=== PATIENT | male | born 1970 | race Caucasian/White ===

== ENCOUNTER 2016-09-21 06:01 | Inpatient (IN) | payer BC ==
[2016-09-20 15:25] VITALS: BMI 21.2
[~2016-09-21] VITALS: Ht 167.6 cm; Wt 78.0 kg
[2016-09-21] VITALS (21 sets, daily range): BP systolic 98–122; BP diastolic 53–74; PULSE 58–95; RESP 10–24; Ht 167.6 cm; Wt 78.0 kg
[2016-09-21] MEDS ORDERED: LACTATED RINGER'S 1,000 ML IV* ONE (07:00)
[2016-09-21] MEDS ORDERED: CEFAZOLIN 2 GM/50 ML (PMX) 50 ML IVPB ONE (07:00)
--- NOTE | 2016-09-21 07:26 | HPN ---
Date/Time of Note Date/Time of Note DATE: 09/21/16 TIME: 07:25 Interval H&P Admission Note Pt. seen H&P reviewed: No system changes REMY ISLAS MD Sep 21, 2016 07:25
[2016-09-21] MEDS ORDERED: POLYMYXIN/BACITRACIN 1L IRRIG ONE (07:41)
[2016-09-21] MEDS ORDERED: BUPIVACAINE 0.25%/EPI (SDV) 30 ML INJ ONE (07:43)
[2016-09-21] MEDS ORDERED: GELATIN SIZE 100 SPONGE ONE (07:43)
[2016-09-21] MEDS ORDERED: THROMBIN 5000 UNIT VIAL ONE (07:44)
[2016-09-21] MEDS ORDERED: GLYCOPYRROLATE 1 MG INJ ONE ×2 (07:58→10:26)
[2016-09-21] MEDS ORDERED: SUCCINYLCHOLINE CHLORIDE 100 MG/5 ML SYG IV ONE (07:58)
[2016-09-21] MEDS ORDERED: LIDOCAINE 2% (SDV) 5 ML INJ ONE (07:58)
[2016-09-21] MEDS ORDERED: PROPOFOL 20 ML ONE (07:58)
[2016-09-21] MEDS ORDERED: ROCURONIUM 50 MG INJ ONE ×2 (07:58→09:03)
[2016-09-21] MEDS ORDERED: NEOSTIGMINE 3 MG/3 ML SYRINGE ONE ×2 (07:58→10:27)
[2016-09-21] MEDS ORDERED: MEPERIDINE 100 MG INJ ONE (07:58)
[2016-09-21] MEDS ORDERED: CEFAZOLIN 1 GM INJ ONE (08:11)
[2016-09-21] MEDS ORDERED: ONDANSETRON 4 MG INJ ONE (10:27)
[2016-09-21] MEDS ORDERED: ATROPINE 1 MG/10 ML SYRINGE ONE (10:29)
[2016-09-21] MEDS ORDERED: EPHEDrine SULFATE 50 MG/5 ML SYG ONE (10:29)
[2016-09-21] MEDS ORDERED: OXYCODONE/ACETAMINOPHEN (5/325) TAB PO PRN ×2 (11:30)
[2016-09-21] MEDS ORDERED: MEPERIDINE 25 MG INJ IV PRN (11:30)
[2016-09-21] MEDS ORDERED: LABETALOL HCL 20MG INJ IV PRN (11:30)
[2016-09-21] MEDS ORDERED: METOCLOPRAMIDE 10 MG INJ IV PRN (11:30)
[2016-09-21] MEDS ORDERED: DIPHENHYDRAMINE 50 MG INJ IV PRN (11:30)
[2016-09-21] MEDS ORDERED: hydrALAzine 20 MG INJ IV PRN (11:30)
[2016-09-21] MEDS ORDERED: ONDANSETRON 4 MG INJ IV PRN ×2 (11:30→12:00)
[2016-09-21] MEDS ORDERED: MIDAZOLAM 1 MG/ML 2 ML INJ IV PRN (11:30)
[2016-09-21] MEDS ORDERED: HYDROmorphONE (0.2 MG/ML) 10ML SYG IV PRN ×3 (11:30)
[2016-09-21] MEDS ORDERED: EPHEDrine SULFATE 50 MG/5 ML SYG IV PRN (11:30)
[2016-09-21] MEDS ORDERED: FENTAnyl 50 MCG/ML VIAL IV PRN ×3 (11:30)
[2016-09-21] MEDS ORDERED: morphine (1 MG/ML) 10ML SYRINGE IV PRN ×3 (11:30)
--- NOTE | 2016-09-21 11:51 | OPR ---
Date/Time of Note Date/Time of Note DATE: 09/21/16 TIME: 11:36 Operative Report Free Text/Dictation DATE OF OPERATION: 09/21/2016 PREOPERATIVE DIAGNOSES: 1. Left sided L4-5 Herniated Nucleus Pulposis 2. L4-5 spinal stenosis with neurogenic claudication POSTOPERATIVE DIAGNOSES: 1. Left sided L4-5 Herniated Nucleus Pulposis 2. L4-5 spinal stenosis with neurogenic claudication OPERATION PERFORMED: 1. Left L4-L5 microdiscectomy 2. L4-5 bilateral laminectomy, medial facetectomy, and foraminotomy SURGEON: Remy Islas MD ANESTHESIA: General endotracheal ESTIMATED BLOOD LOSS: 100 mL SURGICAL INDICATION: The patient is a 46 year-old male who presents with a 2 year history of worsening bilateral lower extremity pain with neurogenic claudication. He was found to have a disc herniation and severe spinal stenosis which correlated well with his symptoms. The patient had failed conservative treatment. Risks, benefits, and alternatives to a L4-5 microdiscectomy and L4- 5 bilateral decompression were explained to the patient and they wished to proceed. Risks explained included but were not exclusive of bleeding, infection , cauda equina syndrome, nerve injury, dural tear, iatrogenic instability requiring fusion, recurrent disc herniation, fracture, vascular injury, bowel injury, stroke, heart attack and pulmonary embolism. DESCRIPTION OF TECHNIQUE: The patient was identified in the preoperative area and taken to the operating room. Rapid induction of general endotracheal anesthesia was performed. The patient was given 2 g of cefazolin for prophylaxis. The patient was then placed in the prone position on the Rojas frame on a Bart flat top table with all prominences well padded. The back was prepped and draped in the usual sterile manner. Using a spinal needle and intraoperative fluoroscopy, the appropriate level was clearly identified (L4-L5) . The skin was injected using 0.25% Marcaine with epinephrine. Longitudinal midline incision was then created using a 10 blade. Further dissection through soft tissue was performed using electrocautery down to the spinous processes bilaterally. Dissection was taken down the bilateral lamina and over the facet joint capsule. A self-retaining retractor was applied. Again, intraoperative fluoroscopy confirmed the level. A rongeur was used to remove a portion of the L4 spinous process and the interspinous ligaments. We identified the interlaminar window. The microscope was brought into use for microdissection. The high-speed bur was used to thin the L4 lamina. Kerrison rongeurs were then used to resect the lamina, and a portion of the medial facets and the bone overlying the foramen. Ligamentum flavum was also resected using the Kerrison rongeurs. Care was taken to protect the thecal sac throughout the decompressive procedure. We then focused our attention on the L4-5 left sided microdiskectomy. The dura and traversing left L5 nerve root were both directly visualized. These were retracted gently in a medial direction. Immediately, the extruded disc fragment was noted. The pseudo anulus was incised using an 11 blade. Several loose fragments of disk were removed. These were removed back to a stable portion of the disk. The disk space was further pressurized using a using normal saline through a syringe to ensure that no loose fragments remained behind. There was a portion of the disk that was noted to be calcified. Palpation with a ball-tip probe did not reveal any further stenosis in the central, subarticular, or foraminal areas. The bilateral L5 and L4 pedicles were palpated using a elsy to ensure a pedicle to pedicle decompression. The exiting L4 nerve root and traversing L5 nerve roots were both directly visualized and noted to be decompressed. The cephalad and caudad extent of the decompression were also confirmed using ball-tip probes and intraoperative fluoroscopy. Meticulous attention was then paid towards hemostasis using FloSeal and bipolar electrocautery. Care was taken to remove all FloSeal prior to wound closure. The fascia was then closed using 0 Vicryl in an interrupted fashion. Subcutaneous tissue was closed using 2-0 Vicryl in an interrupted fashion. The skin was closed using a running 4-0 Monocryl stitch. The wound was dressed using Dermabond and a 4x4 sterile gauze w/ a Tegaderm. The patient was returned to the supine position. He was extubated immediately postoperatively and taken to the recovery room in stable condition. COMPLICATIONS: None. Anesthesia: general Estimated Blood Loss: 100 - 150 ml's Complications: None Pt Condition Post Procedure: stable Disposition: PACU REMY ISLAS MD Sep 21, 2016 11:46
--- NOTE | 2016-09-21 11:52 | PDOCDIS ---
Discharge Instructions CONDITION Patient Condition: Good HOME CARE INSTRUCTIONS: Diet Instructions: Regular ACTIVITY: Activity Restrictions: Avoid heavy lifting Bathing Restrictions: Shower FOLLOW UP/APPOINTMENTS Follow-up Plan Follow-up with Dr. Islas in 2 weeks REMY ISLAS MD Sep 21, 2016 11:52
[2016-09-21] MEDS ORDERED: ACETAMINOPHEN 325 MG TAB PO PRN (12:00)
[2016-09-21] MEDS ORDERED: NACL 0.9% 3 ML SYG IV SCH (12:00)
[2016-09-21] MEDS ORDERED: ZOLPIDEM 5 MG TAB PO PRN (12:00)
[2016-09-21] MEDS ORDERED: HYDROmorphONE 2 MG/ML SYG IV PRN ×2 (12:00→15:42)
[2016-09-21] MEDS ORDERED: HYDROCODONE/APAP (5/325) TAB PO PRN (12:00)
[2016-09-21] MEDS ORDERED: NALOXONE (0.4 MG/ML) INJ IV PRN (12:00)
[2016-09-21] MEDS: CEFAZOLIN 1 GM/50 ML (PMX) 50 ML IVPB SCH ×2 (12:29→17:31)
[2016-09-21] MEDS: HYDROmorphONE 2 MG/ML SYG IV PRN (19:22)
[2016-09-21] MEDS ORDERED: DIAZEPAM 5 MG/ML SYG IM ONE (19:30)
[2016-09-21] MEDS: CYCLOBENZAPRINE 10 MG TAB PO SCH (22:14)
[2016-09-22] VITALS: BP 144/73; RESP 18
[2016-09-22] MEDS: CEFAZOLIN 1 GM/50 ML (PMX) 50 ML IVPB SCH ×2 (00:32→05:46)
[2016-09-22] MEDS: HYDROmorphONE 2 MG/ML SYG IV PRN ×2 (01:06→05:50)
[2016-09-22 05:00] VITALS: BP 108/63; PULSE 88; RESP 18
--- NOTE | 2016-09-22 07:56 | RADRPT ---
PROCEDURE: XR fluoro guidance CLINICAL INDICATION: Lumbar L4-5 decompression TECHNIQUE: Intraoperative fluoroscopy performed. 3 images submitted. Total fluoro time 8 sec. COMPARISON: None available FINDINGS: Lowermost mobile vertebral segment will be labeled L5. There are instruments posteriorly at the L4- 5 level. Anterior osteophytes are seen at L2-3, L4-5, L5-S1. See operative report for details. IMPRESSION: Fluoroscopic guidance for lumbar spine surgery described above. RPTAT: VV .Jose Carlos Allen MD, Date Time Electronically viewed and signed by .Jose Carlos Allen MD, on 09/21/2016 12:08 .O/
[2016-09-22 07:58] VITALS: BP 97/54; RESP 16
[2016-09-22] MEDS: CYCLOBENZAPRINE 10 MG TAB PO SCH ×2 (08:11→21:48)
[2016-09-22] MEDS: HYDROCODONE/APAP (5/325) TAB PO PRN ×3 (08:12→21:01)
[2016-09-22 15:10] VITALS: BP 105/62; PULSE 115; RESP 14
[2016-09-22 16:26] LABS: AADO2 Arterial 34.9 mmHg (7.0-24.0); Arterial Base Excess 2.3 mmol/L (-3.0-3); Arterial COHb 0.5 % (0.0-3.0); Arterial Fraction of Oxyhgb 91.8 % (93.0-99.0); Arterial HCO3 27.3 mmol/L (22.0-26.0); Arterial MetHb 0.5 % (0.0-1.5); Arterial Total Hemglobin 14.3 g/dl (12.0-18.0); MODE ROOM AIR
[2016-09-22 16:46] LABS: HEMATOCRIT 38.7 % (42.0-52.0); HEMOGLOBIN 13.1 g/dl (14.0-18.0)
[2016-09-22] MEDS ORDERED: SOD CHLORIDE 0.9% 250 ML IV ONE ×2 (17:00→21:00)
[2016-09-22 17:08] VITALS: BP 114/68; PULSE 108; RESP 14
--- NOTE | 2016-09-22 17:15 | RADRPT ---
PROCEDURE: XR Chest. CLINICAL INDICATION: Shortness of breath. Desaturation TECHNIQUE: A single portable view of the chest was obtained. COMPARISON: None FINDINGS: The cardiomediastinal silhouette is within normal limits. The right hemidiaphragm is elevated with r ight lower lobe atelectasis. The remaining lungs and pleural spaces are clear. The soft tissues and osseous structures are unremarkable. IMPRESSION: No acute cardiopulmonary disease. Elevated right hemidiaphragm with right lower lobe atelectasis. RPTAT: HPNM Physician Shlomo Date Time Electronically viewed and signed by Physician Shlomo on 09/22/2016 17:15 /
[2016-09-22] MEDS ORDERED: IOHEXOL 100 ML ONE (18:13)
[2016-09-22] MEDS ORDERED: SOD CHLORIDE 0.9% 100 ML ONE (18:13)
--- NOTE | 2016-09-22 19:05 | CONS ---
Date/Time of Note Date/Time of Note DATE: 09/22/16 TIME: 18:58 Assessment/Plan Assessment/Plan Chief Complaint/Hosp Course Assessment and plan: 46-year-old male past medical history of hypothyroidism, chronic low back pain, prior appendectomy, postop day #1 lumbar laminectomy secondary to disc herniation severe spinal stenosis, now with signs of fever and tachycardia, sepsis. 1. Low back pain: Status post lumbar laminectomy postop day #1 -Continue postop care per primary surgery team recommendations, including pain control, physical therapy 2. Sepsis: Patient having tachycardia and now fever in the last few hours. Unclear source. Also some chest pressure apparently. -Follow-up CTA to rule out pulmonary embolism. Will check stat labs including lactic acid, blood culture, UA, urine culture, CBC, BMP -We will start IV fluids as well 3. Hypothyroidism: We will check TSH and free T4 as well We will continue to follow along with you. Problems: Consultation Date/Type/Reason Admit Date/Time Sep 21, 2016 at 11:32 Hx of Present Illness 46-year-old male past medical history of hypothyroidism, chronic low back pain, prior appendectomy. He was brought in for elective surgery because of a 2 year history of worsening bilateral lower extremity pain with neurogenic claudication. He was found to have a disc herniation and severe spinal stenosis which correlated well with his symptoms. The patient had failed conservative treatment. He underwent left L4-L5 microdiscectomy as well as L4-5 bilateral laminectomy, medial facetectomy, and foraminotomy. Medical team was asked to consult because the patient has been having tachycardia and fever in the last few hours. He did work with physical therapy earlier today. Presently patient is down at CT scan getting a CT angios of the chest to rule out pulmonary embolism. Full review of systems cannot be obtained at this time nor physical exam. Past Medical History See HPI Past Surgical History Past Surgical Hx: appendectomy Family History Significant Family History: other (Unknown) Social History Smoking Status: Never smoker Exam/Review of Systems Vital Signs Vitals Vital Signs Date Time Temp Pulse Resp B/P Pulse Ox O2 Delivery O2 Flow Rate FiO2 09/22/16 17:08 100.0 108 14 114/68 89 Room Air 09/22/16 15:10 2.0 Intake and Output 09/21/16 09/21/16 09/22/16 15:00 23:00 07:00 Intake Total 3050 ml 370 ml 410 ml Output Total 300 ml 1100 ml Balance 2750 ml 370 ml -690 ml Exam Physical exam: Unable to be obtained at this time because patient is down getting CTA. Results Result Diagram: 09/22/16 1635 Results 24 hrs Laboratory Tests Test 09/22/16 15:55 09/22/16 16:35 Blood Gas Specimen Source Blood arterial Arterial Blood Date Drawn 09/22/2016 4:20:21 PM Arterial Blood pH (Temp corrected) 7.415 Arterial Blood pCO2 (Temp correct) 43.5 Arterial Blood pO2 (Temp corrected) 62.7 L Arterial Blood HCO3 27.3 H Arterial Blood Base Excess 2.3 Arterial Blood Oxygen Saturation 92.7 L Tristian Test N/A Arterial Blood Gas Puncture Site Right Brachial Arterial Blood Carboxyhemoglobin 0.5 Arterial Blood Methemoglobin 0.5 Blood Gas A-a O2 Differential 34.9 H Oxyhemoglobin Percent 91.8 L Total Hemoglobin 14.3 Blood Gas Temperature 37.0 Blood Gas Modality ROOM AIR FiO2 21.0 Blood Gas Notified Whom MDA Blood Gas Notified Time 09/22/2016 4:26:06 PM Hemoglobin 13.1 L Hematocrit 38.7 L Medications Medications Current Medications Acetaminophen/ Hydrocodone Bitart ([place] (5/325)) 1 tab Q4H PRN PO PAIN LEVEL 1 -5; Start 09/21/16 at 12:00 Acetaminophen/ Hydrocodone Bitart ([place] (5/325)) 2 tab Q4H PRN PO PAIN LEVEL 6 -10 Last administered on 09/22/16 16:06; Admin Dose 2 TAB; Start 09/21/16 at 12 :00 Zolpidem Tartrate (Ambien) 5 mg HS PRN PO INSOMNIA; Start 09/21/16 at 12:00 Ondansetron HCl (Zofran Inj) 4 mg Q6H PRN IV NAUSEA AND/OR VOMITING Last administered on 09/21/16 22:19; Admin Dose 4 MG; Start 09/21/16 at 12:00 Acetaminophen (Tylenol Tab) 650 mg Q4H PRN PO TEMP GREATER THAN 101F OR [place]; Start 09/21/16 at 12:00 Naloxone HCl (Narcan) 0.2 mg Q2M PRN IV RR 8 BREATHS/MIN OR LESS; Start 7/21/ 17 at 12:00 Cyclobenzaprine HCl (Flexeril) 15 mg BID PO Last administered on 09/22/16t 08: 11; Admin Dose 15 MG; Start 09/21/16 at 21:00 GERBER DIAZ Sep 22, 2016 19:05
[2016-09-22] MEDS ORDERED: SOD CHLORIDE 0.45% 1,000 ML IV SCH (19:30)
[2016-09-22 20:24] VITALS: BP 120/72; RESP 19
[2016-09-22 20:34] LABS: BASOPHILS % 0.2 % (0.0-2.0); EOSINOPHILS # 0.1 10^3/ul (0.0-0.5); EOSINOPHILS % 0.5 % (0.0-7.0); HEMATOCRIT 39.3 % (42.0-52.0); HEMOGLOBIN 12.9 g/dl (14.0-18.0); LYMPHOCYTES # 1.2 10^3/ul (0.8-2.9); MEAN CORPUSCULAR HEMOGLOBIN 29.1 pg (29.0-33.0); MEAN CORPUSCULAR HGB CONC 32.8 g/dl (32.0-37.0); MEAN CORPUSCULAR VOLUME 88.7 fl (82.0-101.0); MEAN PLATELET VOLUME 11.3 fl (7.4-10.4); MONOCYTES % 10.6 % (0.0-11.0); NEUTROPHIL # 7.4 10^3/ul (1.6-7.5); NEUTROPHILS % 76.5 % (39.0-77.0); NUCLEATED RED BLOOD CELLS% 0.2 /100WBC (0.0-0.0); PLATELET COUNT 138 10^3/UL (140-415); POSITIVE DIFF @See below; RED BLOOD COUNT 4.43 10^6/ul (4.70-6.10); RED CELL DISTRIBUTION WIDTH 13.2 % (11.5-14.5); WHITE BLOOD COUNT 9.7 10^3/ul (4.8-10.8)
[2016-09-22 20:50] LABS: CALCIUM 8.6 mg/dl (8.4-10.2); CREATININE 0.96 mg/dl (0.61-1.24); POTASSIUM 4.3 mmol/L (3.5-5.1)
[2016-09-22] MEDS: SOD CHLORIDE 0.9% 1,000 ML IV SCH (21:49)
--- NOTE | 2016-09-22 22:34 | RADRPT ---
PROCEDURE: CTA Chest. CLINICAL INDICATION: Hypoxia. TECHNIQUE: CT angiography of the chest, with axial, sagittal and coronal reformatted images. Auto mated dose exposure controls employed. The total exam CTDI equals 40.28 mGy and the total exam DLP e quals 694.50 mGy-cm. 100 cc Isovue 300 nonionic IV contrast were employed. COMPARISON: No prior studies are available for comparison. FINDINGS: Study is limited secondary to prominent systemic arterial phase. There is mild respiratory versus c ardiac motion present at the posterior costophrenic angles, which may artifactually decreases attenu ation in a few contrast opacified pulmonary arteries at the left costophrenic angle. Question pulmo nary emboli in a single narrow caliber posterior left costophrenic angle pulmonary artery. This is seen on coronal image number [id number]. Otherwise, there are no evident pulmonary emboli. Cardiomegaly. Bilateral dense posterior costophrenic angle dependent atelectasis, right greater jessie n left with mild ground-glass opacities at the dependent lung bases suggesting a mild degree of fail ure. Mild atelectasis at the lingula. The lung volumes are relatively small suggesting hypoinflation . There is mild elevation right hemidiaphragm. No hilar or mediastinal adenopathy. The pleura and osseous structures unremarkable. No evident atherosclerotic calcifications in the thoracic aorta o r coronary arteries. Limited visualization of abdominal viscera is unremarkable. IMPRESSION: 1. Dense atelectasis at the bilateral posterior costophrenic angles, right greater than left. 2. Mild ground-glass opacities in bilateral lung bases suggesting a degree of failure in setting of cardiomegaly. 3. Question pulmonary emboli in the a single narrow caliber posterior left costophrenic all pulmona ry artery versus artifact from respiratory or cardiac motion. 4. A nuclear medicine VQ scan may be of further use if clinically required. 5. Otherwise, no pulmonary emboli. RPTAT: UU Physician Americo Date Time Electronically viewed and signed by Physician Americo on 09/22/2016 22:34 RS/
[2016-09-22] MEDS ORDERED: LEVALBUTEROL (NEB) 0.63 MG/3 ML AMP HHN PRN (23:00)
[2016-09-22] MEDS ORDERED: IPRATROPIUM (NEB) 0.5 MG/2.5 ML AMP HHN PRN (23:00)
[2016-09-23 01:53] VITALS: BP 121/74; RESP 18
[2016-09-23] MEDS: HYDROCODONE/APAP (5/325) TAB PO PRN ×3 (03:48→14:42)
--- NOTE | 2016-09-23 07:34 | RADRPT ---
PROCEDURE: US DVT. CLINICAL INDICATION: Bilateral lower extremity swelling and redness. TECHNIQUE: Multiple longitudinal and transverse images of the bilateral lower extremity veins were obtained with balderas scale and color Doppler imaging. 2D grayscale measurements with compression, co coco Doppler flow, and augmentation was performed. The calf veins were interrogated as well. COMPARISON: No prior studies are available for comparison. FINDINGS: The bilateral common femoral, femoral and popliteal veins are normally compressible throughout. Col or flow demonstrates normal filling of the vessels. Normal waveforms are visualized and there is no rmal response to augmentation. The calf veins are visualized and are equally unremarkable. IMPRESSION: 1. No DVT in either lower extremity. RPTAT: HTAR .Randy Marcelo MD, MD Date Time Electronically viewed and signed by .Randy Marcelo MD, MD on 09/23/2016 01:14 .R/
[2016-09-23 08:06] LABS: ADD UMIC NO; UR ASCORBIC ACID NEGATIVE (NEGATIVE); UR BILIRUBIN (Dip) NEGATIVE (NEGATIVE); UR BLOOD (Dip) NEGATIVE (NEGATIVE); UR CLARITY CLEAR (CLEAR); UR COLOR YELLOW (YELLOW); UR GLUCOSE (Dip) NEGATIVE (NEGATIVE); UR KETONES (Dip) 1+ mg/dL (NEGATIVE); UR LEUKOCYTE ESTERASE (Dip) NEGATIVE Leu/ul (NEGATIVE); UR NITRITE (Dip) NEGATIVE (NEGATIVE); UR SPECIFIC GRAVITY (Dip) 1.029 (1.003-1.030); UR TOTAL PROTEIN (Dip) NEGATIVE (NEGATIVE); UR UROBILINOGEN (Dip) NEGATIVE (NEGATIVE)
[2016-09-23] MEDS: CYCLOBENZAPRINE 10 MG TAB PO SCH ×2 (08:50→21:09)
[2016-09-23 09:34] VITALS: BP 120/76; RESP 20
--- NOTE | 2016-09-23 11:06 | CONS ---
Date/Time of Note Date/Time of Note DATE: 09/23/16 TIME: 11:03 Consult Date/Type/Reason Admit Date/Time Sep 23, 2016 at 09:21 Initial Consult Date Subjective Patient had CTA and lower extremity Dopplers performed yesterday. Complaining of some mild abdominal bloating symptoms, otherwise passing gas, no acute events overnight. Objective Vital Signs Date Time Temp Pulse Resp B/P Pulse Ox O2 Delivery O2 Flow Rate FiO2 09/23/16 10:36 93 14 98 Nasal Cannula 1.0 09/23/16 09:34 98.5 120/76 09/23/16 04:04 21 Intake and Output 09/22/16 09/22/16 09/23/16 15:00 23:00 07:00 Intake Total 1550 ml 1165 ml Output Total 700 ml 1200 ml Balance 850 ml -35 ml Physical exam: General: Lying in bed, in mild distress, but alert. Family at bedside HEENT: Pupils equal round reactive to light extraocular muscles are intact Neck: Supple Respiratory: Slightly distant breath sounds bilaterally Cardiovascular: S1-S2 heard no rubs no gallops Abdomen: Mild tenderness palpation epigastric area otherwise no rebound or guarding, nondistended Muscular skeletal: No lower extremity edema bilaterally Neurologic: No focal deficits Results/Medications Result Diagram: 09/22/16191909/22/161919 Results 24 hrs Laboratory Tests Test 09/22/16 15:55 09/22/16 16:35 09/22/16 19:20 09/23/16 04:50 Blood Gas Specimen Source Blood arterial Arterial Blood Date Drawn 09/22/2016 4:20:21 PM Arterial Blood pH (Temp corrected) 7.415 Arterial Blood pCO2 (Temp correct) 43.5 Arterial Blood pO2 (Temp corrected) 62.7 L Arterial Blood HCO3 27.3 H Arterial Blood Base Excess 2.3 Arterial Blood Oxygen Saturation 92.7 L Tristian Test N/A Arterial Blood Gas Puncture Site Right Brachial Arterial Blood Carboxyhemoglobin 0.5 Arterial Blood Methemoglobin 0.5 Blood Gas A-a O2 Differential 34.9 H Oxyhemoglobin Percent 91.8 L Total Hemoglobin 14.3 Blood Gas Temperature 37.0 Blood Gas Modality ROOM AIR FiO2 21.0 Blood Gas Notified Whom MDA Blood Gas Notified Time 09/22/2016 4:26:06 PM Hemoglobin 13.1 L 12.9 L Hematocrit 38.7 L 39.3 L White Blood Count 9.7 Red Blood Count 4.43 L Mean Corpuscular Volume 88.7 Mean Corpuscular Hemoglobin 29.1 Mean Corpuscular Hemoglobin Concent 32.8 Red Cell Distribution Width 13.2 Platelet Count 138 L Mean Platelet Volume 11.3 H Neutrophils % 76.5 Lymphocytes % 12.0 L Monocytes % 10.6 Eosinophils % 0.5 Basophils % 0.2 Nucleated Red Blood Cells % 0.2 H Neutrophils # 7.4 Lymphocytes # 1.2 Monocytes # 1.0 H Eosinophils # 0.1 Basophils # 0.0 Nucleated Red Blood Cells # 0.0 Sodium Level 142 Potassium Level 4.3 Chloride Level 101 Carbon Dioxide Level 29 Anion Gap 16 Blood Urea Nitrogen 10 Creatinine 0.96 Glucose Level 82 Lactic Acid Level 2.1 H Calcium Level 8.6 Troponin I < 0.012 Thyroid Stimulating Hormone (TSH) 0.504 Free Thyroxine 1.41 Ethyl Alcohol Level < 10.0 Urine Color YELLOW Urine Clarity CLEAR Urine pH 6.0 Urine Specific [place] 1.029 Urine Ketones 1+ H Urine Nitrite NEGATIVE Urine Bilirubin NEGATIVE Urine Urobilinogen NEGATIVE Urine Leukocyte Esterase NEGATIVE Urine Hemoglobin NEGATIVE Urine Glucose NEGATIVE Urine Total Protein NEGATIVE Test 09/23/16 05:20 Lactic Acid Level 1.6 Medications Current Medications Acetaminophen/ Hydrocodone Bitart ([place] (5/325)) 1 tab Q4H PRN PO PAIN LEVEL 1 -5; Start 09/21/16 at 12:00 Acetaminophen/ Hydrocodone Bitart ([place] (5/325)) 2 tab Q4H PRN PO PAIN LEVEL 6 -10 Last administered on 09/23/16 09:40; Admin Dose 2 TAB; Start 09/21/16 at 12 :00 Zolpidem Tartrate (Ambien) 5 mg HS PRN PO INSOMNIA; Start 09/21/16 at 12:00 Ondansetron HCl (Zofran Inj) 4 mg Q6H PRN IV NAUSEA AND/OR VOMITING Last administered on 09/21/16 22:19; Admin Dose 4 MG; Start 09/21/16 at 12:00 Acetaminophen (Tylenol Tab) 650 mg Q4H PRN PO TEMP GREATER THAN 101F OR [place]; Start 09/21/16 at 12:00 Naloxone HCl (Narcan) 0.2 mg Q2M PRN IV RR 8 BREATHS/MIN OR LESS; Start at 12:00 Cyclobenzaprine HCl 15 mg 15 mg BID PO Last administered on 09/23/16 08:50; Admin Dose 15 MG; Start 09/21/16 at 21:00 Sodium Chloride 1,000 ml @ 75 mls/hr [id number] IV Last administered on 19:53; Admin Dose 75 MLS/HR; Start 09/22/16 at 19:30; Status Future Hold Sodium Chloride (NS) 1,000 ml @ 70 mls/hr [id number] IV Last administered on 09/22 21:49; Admin Dose 70 MLS/HR; Start 09/22/16 at 21:00 Assessment/Plan Chief Complaint/Hosp Course Assessment and plan: 46-year-old male past medical history of hypothyroidism, chronic low back pain, prior appendectomy, postop day #1 lumbar laminectomy secondary to disc herniation severe spinal stenosis, now with signs of fever and tachycardia, sepsis. 1. Low back pain: Status post lumbar laminectomy postop day # 2 -Continue postop care per primary surgery team recommendations, including pain control, physical therapy 2. Sepsis: Improved, lactic acid is normal now, heart rate is normal. No present fevers. (patient had been having tachycardia and fever 1 yesterday) -For shortness of breath symptoms, continue duo nebs as needed, incentive spirometry use per primary team recommendations. Of note ultrasound lower extremity was negative for DVT. 3. Hypothyroidism: Thyroid panel was normal, monitor for now We will continue to follow along with you. Problems: GERBER DIAZ Sep 23, 2016 11:06
--- NOTE | 2016-09-23 12:21 | CONS ---
Date/Time of Note Date/Time of Note DATE: 09/23/16 TIME: 12:05 Consultation Date/Type/Reason Admit Date/Time Sep 23, 2016 at 09:21 Initial Consult Date Type of Consultation: Ortho Spine Progress Note 24 HR Interval Summary Free Text/Dictation S: 46 yo Male POD#2 s/p L4-5 microdiskectomy and bilateral decompression for spinal stenosis with neurogenic claudication. Patient had low grade fever of 100 x 1 yesterday and episode of tachycardia and decreased O2 sat to 70s. Discharge was held due to this. EKG showed sinus tachycardia. He denied any SOB or chest pain. Discharge was held and CT angio of chest was ordered to evaluate for pulmonary embolus. Chest X-Ray and CT Chest showed atelectasis w/o definite pulmonary embolism. He has been doing well this am. He had a respiratory treatment and is now sating well on RA. He has been encouraged to use IS. He continues to deny CP or SOB. His pain is well controlled. O: Tm 98.5 HR: 97-98 BP: 120-121/74-76 Lactic acid 1.6, O2 sat 93% on RA Gen: AAOx3, NAD Abdomen: soft, non-tender mild distension Spine: 5/5 TA/EHL/GS/KE, +SILT L3-S1, incision C/D/I Labs: (09/22) H&H 12.9/39.3 WBC: 9.7 Doppler b/l LE: Negative for DVT Chest CT: Right greater than Left dense atelectasis at posterior costophrenic angles, no obvious pulmonary embolus A/P: 46 yo Male POD#2 s/p L4-5 microdiskectomy and bilateral decompression for spinal stenosis with neurogenic claudication 1. Decreased O2 sat and low grade fever x 1 likely secondary to atelectasis now sating well on RA, continue IS 2. PT has cleared patient 3. Continue to monitor O2 sat and d/c today if ok by medicine 4. patient has a negative septic w/u. Currently lactic acid normal, afebrile and WBC WNL, symptoms likely secondary to atelectasis Exam/Review of Systems Vital Signs Vitals Vital Signs Date Time Temp Pulse Resp B/P Pulse Ox O2 Delivery O2 Flow Rate FiO2 09/23/16 10:36 93 14 98 Nasal Cannula 1.0 09/23/16 09:34 98.5 120/76 09/23/16 04:04 21 Intake and Output 09/22/16 09/22/16 09/23/16 15:00 23:00 07:00 Intake Total 1550 ml 1165 ml Output Total 700 ml 1200 ml Balance 850 ml -35 ml Results Result Diagram: 09/22/16191909/22/161919 Results 24 hrs Laboratory Tests Test 09/22/16 15:55 09/22/16 16:35 09/22/16 19:20 09/23/16 04:50 Blood Gas Specimen Source Blood arterial Arterial Blood Date Drawn 09/22/2016 4:20:21 PM Arterial Blood pH (Temp corrected) 7.415 Arterial Blood pCO2 (Temp correct) 43.5 Arterial Blood pO2 (Temp corrected) 62.7 L Arterial Blood HCO3 27.3 H Arterial Blood Base Excess 2.3 Arterial Blood Oxygen Saturation 92.7 L [place] Test N/A Arterial Blood Gas Puncture Site Right Brachial Arterial Blood Carboxyhemoglobin 0.5 Arterial Blood Methemoglobin 0.5 Blood Gas A-a O2 Differential 34.9 H Oxyhemoglobin Percent 91.8 L Total Hemoglobin 14.3 Blood Gas Temperature 37.0 Blood Gas Modality ROOM AIR FiO2 21.0 Blood Gas Notified Whom MDA Blood Gas Notified Time 09/22/2016 4:26:06 PM Hemoglobin 13.1 L 12.9 L Hematocrit 38.7 L 39.3 L White Blood Count 9.7 Red Blood Count 4.43 L Mean Corpuscular Volume 88.7 Mean Corpuscular Hemoglobin 29.1 Mean Corpuscular Hemoglobin Concent 32.8 Red Cell Distribution Width 13.2 Platelet Count 138 L Mean Platelet Volume 11.3 H Neutrophils % 76.5 Lymphocytes % 12.0 L Monocytes % 10.6 Eosinophils % 0.5 Basophils % 0.2 Nucleated Red Blood Cells % 0.2 H Neutrophils # 7.4 Lymphocytes # 1.2 Monocytes # 1.0 H Eosinophils # 0.1 Basophils # 0.0 Nucleated Red Blood Cells # 0.0 Sodium Level 142 Potassium Level 4.3 Chloride Level 101 Carbon Dioxide Level 29 Anion Gap 16 Blood Urea Nitrogen 10 Creatinine 0.96 Glucose Level 82 Lactic Acid Level 2.1 H Calcium Level 8.6 Troponin I < 0.012 Thyroid Stimulating Hormone (TSH) 0.504 Free Thyroxine 1.41 Ethyl Alcohol Level < 10.0 Urine Color YELLOW Urine Clarity CLEAR Urine pH 6.0 Urine Specific [place] 1.029 Urine Ketones 1+ H Urine Nitrite NEGATIVE Urine Bilirubin NEGATIVE Urine Urobilinogen NEGATIVE Urine Leukocyte Esterase NEGATIVE Urine Hemoglobin NEGATIVE Urine Glucose NEGATIVE Urine Total Protein NEGATIVE Test 09/23/16 05:20 Lactic Acid Level 1.6 Medications Medications Current Medications Acetaminophen/ Hydrocodone Bitart ([place] (5/325)) 1 tab Q4H PRN PO PAIN LEVEL 1 -5; Start 09/21/16 at 12:00 Acetaminophen/ Hydrocodone Bitart ([place] (5/325)) 2 tab Q4H PRN PO PAIN LEVEL 6 -10 Last administered on 09/23/16 09:40; Admin Dose 2 TAB; Start 09/21/16 at 12 :00 Zolpidem Tartrate (Ambien) 5 mg HS PRN PO INSOMNIA; Start 09/21/16 at 12:00 Ondansetron HCl (Zofran Inj) 4 mg Q6H PRN IV NAUSEA AND/OR VOMITING Last administered on 09/21/16 22:19; Admin Dose 4 MG; Start 09/21/16 at 12:00 Acetaminophen (Tylenol Tab) 650 mg Q4H PRN PO TEMP GREATER THAN 101F OR [place]; Start 09/21/16 at 12:00 Naloxone HCl (Narcan) 0.2 mg Q2M PRN IV RR 8 BREATHS/MIN OR LESS; Start at 12:00 Cyclobenzaprine HCl 15 mg 15 mg BID PO Last administered on 09/23/16 08:50; Admin Dose 15 MG; Start 09/21/16 at 21:00 Sodium Chloride 1,000 ml @ 75 mls/hr [id number] IV Last administered on 19:53; Admin Dose 75 MLS/HR; Start 09/22/16 at 19:30; Status Future Hold Sodium Chloride (NS) 1,000 ml @ 70 mls/hr [id number] IV Last administered on 09/22 21:49; Admin Dose 70 MLS/HR; Start 09/22/16 at 21:00 REMY ISLAS MD Sep 23, 2016 12:21
--- NOTE | 2016-09-23 13:17 | CONS ---
Date/Time of Note Date/Time of Note DATE: 09/23/16 TIME: 13:13 Assessment/Plan Assessment/Plan Additional Assessment/Plan Chest x-ray was reviewed from yesterday which is essentially unremarkable. CTA of the chest also was reviewed which is negative for PE however minimal bibasilar infiltrative changes are present. Lower extremity ultrasound is negative for any DVT. Assessment recommendations; 1. Patient admitted for elective lumbar laminectomy which was uneventful. 2. Mild hypoxemia likely from bibasilar subsegmental atelectasis versus infiltrates. 3. History of hypothyroidism. Continue to ambulate the patient. Add chest PT lower lobes bilaterally. Add Levaquin 500 mg IV daily. Consultation Date/Type/Reason Admit Date/Time Sep 23, 2016 at 09:21 Date of Consultation: Sep 23, 2016 Type of Consultation: Pulmonary Reason for Consultation Pulmonary consultation requested for evaluation of hypoxemia. History of presenting any; patient is a pleasant 46-year-old male who was admitted for elective lumbar laminectomy due to chronic low back pain. Surgery was uneventful however the patient is now experiencing mild shortness of breath upon lying down associated with low pulse oximetry reading. Patient complains of very scant cough with scant sputum production for the last day or so. Denies any chest pain, any shortness breath upon exertion. Back pain has improved significantly after undergoing lumbar laminectomy. He denies any fever or chills. Past medical history; 1. Prior history of appendectomy 2. Hypo-thyroidism. Medications; reviewed. Allergies; none. Social history; no history of any smoking alcohol or drug abuse. Family history; patient is single. Occupation history; patient is on disability. Review of systems; denies any headache, sinus symptoms, chest pain, complains of scant cough with scant sputum production. Denies any hemoptysis. Denies any abdominal pain, nausea vomiting. Denies any dyspnea on exertion. Complains of shortness of breath upon lying down. Denies any edema, any GI or urinary symptoms. General exam; young male, awake alert currently in no distress. Sitting in a chair by bedside. Past Surgical History Past Surgical Hx: appendectomy Social History Smoking Status: Never smoker Exam/Review of Systems Vital Signs Vitals Vital Signs Date Time Temp Pulse Resp B/P Pulse Ox O2 Delivery O2 Flow Rate FiO2 09/23/16 10:36 93 14 98 Nasal Cannula 1.0 09/23/16 09:34 98.5 120/76 09/23/16 04:04 21 Intake and Output 09/22/16 09/22/16 09/23/16 15:00 23:00 07:00 Intake Total 1550 ml 1165 ml Output Total 700 ml 1200 ml Balance 850 ml -35 ml Exam HEENT exam; supple neck, no JVD. No lymphadenopathy. Midline trachea. No thyromegaly. Pharynx is clear. Patient has good dentition. Pupils are midsize and reactive to light. Chest exam; diminished but clear breath sound bilaterally. S1-S2 audible, no murmurs. Regular rhythm. Abdomen exam; soft, no organomegaly. Bowel sounds audible. Extremity exam; no peripheral edema. Pulses 2+ bilaterally. No clubbing. Back exam; dressing applied over lumbar area. RISK PROFESSIONAL exam; no focal deficit. Results Result Diagram: 09/22/16191909/22/161919 Results 24 hrs Laboratory Tests Test 09/22/16 15:55 09/22/16 16:35 09/22/16 19:20 09/23/16 04:50 Blood Gas Specimen Source Blood arterial Arterial Blood Date Drawn 09/22/2016 4:20:21 PM Arterial Blood pH (Temp corrected) 7.415 Arterial Blood pCO2 (Temp correct) 43.5 Arterial Blood pO2 (Temp corrected) 62.7 L Arterial Blood HCO3 27.3 H Arterial Blood Base Excess 2.3 Arterial Blood Oxygen Saturation 92.7 L [place] Test N/A Arterial Blood Gas Puncture Site Right Brachial Arterial Blood Carboxyhemoglobin 0.5 Arterial Blood Methemoglobin 0.5 Blood Gas A-a O2 Differential 34.9 H Oxyhemoglobin Percent 91.8 L Total Hemoglobin 14.3 Blood Gas Temperature 37.0 Blood Gas Modality ROOM AIR FiO2 21.0 Blood Gas Notified Whom MDA Blood Gas Notified Time 09/22/2016 4:26:06 PM Hemoglobin 13.1 L 12.9 L Hematocrit 38.7 L 39.3 L White Blood Count 9.7 Red Blood Count 4.43 L Mean Corpuscular Volume 88.7 Mean Corpuscular Hemoglobin 29.1 Mean Corpuscular Hemoglobin Concent 32.8 Red Cell Distribution Width 13.2 Platelet Count 138 L Mean Platelet Volume 11.3 H Neutrophils % 76.5 Lymphocytes % 12.0 L Monocytes % 10.6 Eosinophils % 0.5 Basophils % 0.2 Nucleated Red Blood Cells % 0.2 H Neutrophils # 7.4 Lymphocytes # 1.2 Monocytes # 1.0 H Eosinophils # 0.1 Basophils # 0.0 Nucleated Red Blood Cells # 0.0 Sodium Level 142 Potassium Level 4.3 Chloride Level 101 Carbon Dioxide Level 29 Anion Gap 16 Blood Urea Nitrogen 10 Creatinine 0.96 Glucose Level 82 Lactic Acid Level 2.1 H Calcium Level 8.6 Troponin I < 0.012 Thyroid Stimulating Hormone (TSH) 0.504 Free Thyroxine 1.41 Ethyl Alcohol Level < 10.0 Urine Color YELLOW Urine Clarity CLEAR Urine pH 6.0 Urine Specific [place] 1.029 Urine Ketones 1+ H Urine Nitrite NEGATIVE Urine Bilirubin NEGATIVE Urine Urobilinogen NEGATIVE Urine Leukocyte Esterase NEGATIVE Urine Hemoglobin NEGATIVE Urine Glucose NEGATIVE Urine Total Protein NEGATIVE Test 09/23/16 05:20 Lactic Acid Level 1.6 Medications Medications Current Medications Acetaminophen/ Hydrocodone Bitart ([place] (5/325)) 1 tab Q4H PRN PO PAIN LEVEL 1 -5; Start 09/21/16 at 12:00 Acetaminophen/ Hydrocodone Bitart ([place] (5/325)) 2 tab Q4H PRN PO PAIN LEVEL 6 -10 Last administered on 09/23/16 09:40; Admin Dose 2 TAB; Start 09/21/16 at 12 :00 Zolpidem Tartrate (Ambien) 5 mg HS PRN PO INSOMNIA; Start 09/21/16 at 12:00 Ondansetron HCl (Zofran Inj) 4 mg Q6H PRN IV NAUSEA AND/OR VOMITING Last administered on 09/21/16 22:19; Admin Dose 4 MG; Start 09/21/16 at 12:00 Acetaminophen (Tylenol Tab) 650 mg Q4H PRN PO TEMP GREATER THAN 101F OR [place]; Start 09/21/16 at 12:00 Naloxone HCl (Narcan) 0.2 mg Q2M PRN IV RR 8 BREATHS/MIN OR LESS; Start at 12:00 Cyclobenzaprine HCl 15 mg 15 mg BID PO Last administered on 09/23/16 08:50; Admin Dose 15 MG; Start 09/21/16 at 21:00 Sodium Chloride 1,000 ml @ 75 mls/hr [id number] IV Last administered on 19:53; Admin Dose 75 MLS/HR; Start 09/22/16 at 19:30; Status Future Hold Sodium Chloride (NS) 1,000 ml @ 70 mls/hr [id number] IV Last administered on 09/22t 21:49; Admin Dose 70 MLS/HR; Start 09/22/16 at 21:00 RICHARD SHARP Sep 23, 2016 13:17
[2016-09-23] MEDS: SOD CHLORIDE 0.9% 1,000 ML IV SCH (14:40)
[2016-09-23] MEDS: LEVOFLOXACIN 500MG/D5W (PMX) 100 ML IVPB SCH (14:40)
[2016-09-23 20:34] VITALS: BP 131/84; RESP 16
[2016-09-23 20:34] LABS: BARBITURATES Negative (NEGATIVE); BENZODIAZEPINES Negative (NEGATIVE); CANNABINOIDS Negative (NEGATIVE); COCAINE Negative (NEGATIVE); OPIATES Positive (NEGATIVE)
[2016-09-24] MEDS: SOD CHLORIDE 0.9% 1,000 ML IV SCH ×2 (02:41→15:54)
--- NOTE | 2016-09-24 07:09 | CONS ---
Date/Time of Note Date/Time of Note DATE: 09/24/16 TIME: 07:03 Consultation Date/Type/Reason Admit Date/Time Sep 23, 2016 at 09:21 Type of Consultation: Ortho Spine Progress Note 24 HR Interval Summary Free Text/Dictation S: 46 yo Male POD#3 s/p L4-5 microdiskectomy and bilateral decompression for spinal stenosis with neurogenic claudication. Patient's discharge was held yesterday as per pulmonary recs. He continues to deny any SOB or chest pain. Chest X-Ray and CT Chest show bilateral basilar atelectasis. He has been doing well this am. He has been started on IV levaquin as per pulm recs yesterday. He will also be getting respiratory treatments. He will be likely DC today as per pulmonary recs. O: Gen: AAOx3, NAD Abdomen: soft, non-tender mild distension Spine: 5/5 TA/EHL/GS/KE, +SILT L3-S1, incision C/D/I Labs: (09/22) H&H 12.9/39.3 WBC: 9.7 Lactic acid 1.6, Blood Cx: NG Doppler b/l LE: Negative for DVT Chest CT: Right greater than Left dense atelectasis at posterior costophrenic angles, no obvious pulmonary embolus A/P: 46 yo Male POD#3 s/p L4-5 microdiskectomy and bilateral decompression for spinal stenosis with neurogenic claudication 1. Decreased O2 sat likely secondary to atelectasis now sating well on RA, continue IS, continue respiratory therapy today and DC home if ok with pulmonary team 2. PT has cleared patient 3. Continue to monitor O2 sat and d/c today if ok by pulmonary team Exam/Review of Systems Vital Signs Vitals Vital Signs Date Time Temp Pulse Resp B/P Pulse Ox O2 Delivery O2 Flow Rate FiO2 09/24/16 01:54 2.0 09/23/16 20:34 99.3 108 16 131/84 96 09/23/16 20:00 Nasal Cannula 09/23/16 04:04 21 Intake and Output 09/23/16 09/23/16 09/24/16 15:00 23:00 07:00 Intake Total 850 ml 1450 ml Output Total 1200 ml 600 ml Balance -350 ml 850 ml Results Result Diagram: 09/22/16191909/22/161919 Medications Medications Current Medications Acetaminophen/ Hydrocodone Bitart ([place] (5/325)) 1 tab Q4H PRN PO PAIN LEVEL 1 -5; Start 09/21/16 at 12:00 Acetaminophen/ Hydrocodone Bitart ([place] (5/325)) 2 tab Q4H PRN PO PAIN LEVEL 6 -10 Last administered on 09/23/16 14:42; Admin Dose 2 TAB; Start 09/21/16 at 12 :00 Zolpidem Tartrate (Ambien) 5 mg HS PRN PO INSOMNIA; Start 09/21/16 at 12:00 Ondansetron HCl (Zofran Inj) 4 mg Q6H PRN IV NAUSEA AND/OR VOMITING Last administered on 09/21/16 22:19; Admin Dose 4 MG; Start 09/21/16 at 12:00 Acetaminophen (Tylenol Tab) 650 mg Q4H PRN PO TEMP GREATER THAN 101F OR [place]; Start 09/21/16 at 12:00 Naloxone HCl (Narcan) 0.2 mg Q2M PRN IV RR 8 BREATHS/MIN OR LESS; Start at 12:00 Cyclobenzaprine HCl 15 mg 15 mg BID PO Last administered on 09/23/16 21:09; Admin Dose 15 MG; Start 09/21/16 at 21:00 Sodium Chloride 1,000 ml @ 75 mls/hr [id number] IV Last administered on 19:53; Admin Dose 75 MLS/HR; Start 09/22/16 at 19:30; Status Future Hold Sodium Chloride 1,000 ml @ 70 mls/hr [id number] IV Last administered on 02:41; Admin Dose 70 MLS/HR; Start 09/22/16 at 21:00 Levofloxacin/ Dextrose (Levaquin 500mg/ D5W 100 ml (Pmx)) 100 ml @ 100 mls/hr Q24H IVPB Last administered on 09/23/16 14:40; Admin Dose 100 MLS/HR; Start at 13:30 REMY ISLAS MD Sep 24, 2016 07:09
[2016-09-24] MEDS: CYCLOBENZAPRINE 10 MG TAB PO SCH (08:49)
[2016-09-24] MEDS: HYDROCODONE/APAP (5/325) TAB PO PRN ×2 (08:49→13:39)
[2016-09-24 09:25] VITALS: BP 132/79; RESP 18
[2016-09-24] MEDS: LEVOFLOXACIN 500MG/D5W (PMX) 100 ML IVPB SCH (13:36)
--- NOTE | 2016-09-24 16:06 | CONS ---
Date/Time of Note Date/Time of Note DATE: 09/24/16 TIME: 16:02 Assessment/Plan Assessment/Plan Additional Assessment/Plan 46-year-old male past medical history of hypothyroidism, chronic low back pain , prior appendectomy, sp lumbar laminectomy secondary to disc herniation severe spinal stenosis. Hospitalist service consulted for elevated temperature post op (Tmax 100F). Suspect etio was atelectasis, no current compelling evidence of infection. #elevated temperature: resolved. Cont IS. Abx as per pulm (though no clear evidence of infiltrate on CT chest) # Hypothyroidism: Thyroid panel was normal, monitor for now Hospitalist service will cont to follow dispo as per primary service Consultation Date/Type/Reason Admit Date/Time Sep 23, 2016 at 09:21 Initial Consult Date 09/23/16 Type of Consultation: Hospitalist consult service 24 HR Interval Summary Free Text/Dictation Pt feels well. States breathing is back to baseline Exam/Review of Systems Vital Signs Vitals Vital Signs Date Time Temp Pulse Resp B/P Pulse Ox O2 Delivery O2 Flow Rate FiO2 09/24/16 09:25 98.4 82 18 132/79 95 09/24/16 08:55 21 09/24/16 08:00 Nasal Cannula 2.0 Intake and Output 09/23/16 09/23/16 09/24/16 14:59 22:59 06:59 Intake Total 850 ml 1450 ml Output Total 1200 ml 600 ml Balance -350 ml 850 ml Exam nad no mrg lungs clear abd soft no rashes Results Result Diagram: 09/22/16191909/22/161919 Medications Medications Current Medications Acetaminophen/ Hydrocodone Bitart ([place] (5/325)) 1 tab Q4H PRN PO PAIN LEVEL 1 -5; Start 09/21/16 at 12:00 Acetaminophen/ Hydrocodone Bitart ([place] (5/325)) 2 tab Q4H PRN PO PAIN LEVEL 6 -10 Last administered on 09/24/16 13:39; Admin Dose 2 TAB; Start 09/21/16 at 12 :00 Zolpidem Tartrate (Ambien) 5 mg HS PRN PO INSOMNIA; Start 09/21/16 at 12:00 Ondansetron HCl (Zofran Inj) 4 mg Q6H PRN IV NAUSEA AND/OR VOMITING Last administered on 09/21/16 22:19; Admin Dose 4 MG; Start 09/21/16 at 12:00 Acetaminophen (Tylenol Tab) 650 mg Q4H PRN PO TEMP GREATER THAN 101F OR [place]; Start 09/21/16 at 12:00 Naloxone HCl (Narcan) 0.2 mg Q2M PRN IV RR 8 BREATHS/MIN OR LESS; Start at 12:00 Cyclobenzaprine HCl 15 mg 15 mg BID PO Last administered on 09/24/16 08:49; Admin Dose 15 MG; Start 09/21/16 at 21:00 Sodium Chloride 1,000 ml @ 75 mls/hr [id number] IV Last administered on 19:53; Admin Dose 75 MLS/HR; Start 09/22/16 at 19:30; Status Future Hold Sodium Chloride 1,000 ml @ 70 mls/hr [id number] IV Last administered on 02:41; Admin Dose 70 MLS/HR; Start 09/22/16 at 21:00 Levofloxacin/ Dextrose (Levaquin 500mg/ D5W 100 ml (Pmx)) 100 ml @ 100 mls/hr Q24H IVPB Last administered on 09/24/16 13:36; Admin Dose 100 MLS/HR; Start at 13:30 FRAN QUINONES MD Sep 24, 2016 16:06
--- NOTE | 2016-09-24 17:02 | CONS ---
Date/Time of Note Date/Time of Note DATE: 09/24/16 TIME: 17:00 Consult Date/Type/Reason Admit Date/Time Sep 23, 2016 at 09:21 Initial Consult Date 09/23/16 Type of Consultation: puln Subjective better no shortness of breath Objective Vital Signs Date Time Temp Pulse Resp B/P Pulse Ox O2 Delivery O2 Flow Rate FiO2 09/24/16 09:25 98.4 82 18 132/79 95 09/24/16 08:55 21 09/24/16 08:00 Nasal Cannula 2.0 Intake and Output 09/23/16 09/23/16 09/24/16 15:00 23:00 07:00 Intake Total 850 ml 1450 ml Output Total 1200 ml 600 ml Balance -350 ml 850 ml Exam clear lung fileds Results/Medications Result Diagram: 09/22/16191909/22/161919 Medications Current Medications Acetaminophen/ Hydrocodone Bitart ([place] (5/325)) 1 tab Q4H PRN PO PAIN LEVEL 1 -5; Start 09/21/16 at 12:00 Acetaminophen/ Hydrocodone Bitart ([place] (5/325)) 2 tab Q4H PRN PO PAIN LEVEL 6 -10 Last administered on 09/24/16 13:39; Admin Dose 2 TAB; Start 09/21/16 at 12 :00 Zolpidem Tartrate (Ambien) 5 mg HS PRN PO INSOMNIA; Start 09/21/16 at 12:00 Ondansetron HCl (Zofran Inj) 4 mg Q6H PRN IV NAUSEA AND/OR VOMITING Last administered on 09/21/16 22:19; Admin Dose 4 MG; Start 09/21/16 at 12:00 Acetaminophen (Tylenol Tab) 650 mg Q4H PRN PO TEMP GREATER THAN 101F OR [place]; Start 09/21/16 at 12:00 Naloxone HCl (Narcan) 0.2 mg Q2M PRN IV RR 8 BREATHS/MIN OR LESS; Start at 12:00 Cyclobenzaprine HCl 15 mg 15 mg BID PO Last administered on 09/24/16 08:49; Admin Dose 15 MG; Start 09/21/16 at 21:00 Sodium Chloride 1,000 ml @ 75 mls/hr [id number] IV Last administered on 19:53; Admin Dose 75 MLS/HR; Start 09/22/16 at 19:30; Status Future Hold Sodium Chloride 1,000 ml @ 70 mls/hr [id number] IV Last administered on 02:41; Admin Dose 70 MLS/HR; Start 09/22/16 at 21:00 Levofloxacin/ Dextrose (Levaquin 500mg/ D5W 100 ml (Pmx)) 100 ml @ 100 mls/hr Q24H IVPB Last administered on 09/24/16 13:36; Admin Dose 100 MLS/HR; Start at 13:30 Assessment/Plan Chief Complaint/Hosp Course s/p spinal surgery post op atalectasis improved f/u with me for YADI Problems: SABINA ALBRIGHT MD, [facility] Sep 24, 2016 17:02
--- NOTE | 2016-09-26 22:16 | RADRPT ---
Vent Rate: 96 bpm RR Interval: 0 msec VT Interval: 168 msec QRS Duration: 102 msec QT Interval: 316 msec QTC Interval: 399 msec P-R-T [place]: 45 - -31 - 7 degrees Normal sinus rhythm Left axis deviation Cannot rule out Anterior infarct , age undetermined Abnormal ECG Electronically Signed By: Cornell Zaldivar [id number]
== END 2016-09-24 17:20 | disposition home or self-care (01) | DRG 519 ==
LOC: SDS 06:01 → MS1 11:32 → OBSVTOIN 09-23 09:21
PROVIDERS: ADMIT Orthopaedic Surgery; ATTEND Orthopaedic Surgery
PROC: 0SB20ZZ Excision of Lumbar Vertebral Disc, Open Approach (ICD-10-PCS; 2016-09-21)
PROC: 01NB0ZZ Release Lumbar Nerve, Open Approach (ICD-10-PCS; principal; 2016-09-21 08:00)
PROC: 4A033R1 Measurement of Arterial Saturation, Peripheral, Percutaneous Approach (ICD-10-PCS; 2016-09-22)
DX: M51.26 Other intervertebral disc displacement, lumbar region (principal); J98.11 Atelectasis; M48.06 Spinal stenosis, lumbar region; E78.5 Hyperlipidemia, unspecified; E03.9 Hypothyroidism, unspecified
CPT/HCPCS: 36600; 71010; 71275; 72100; 80048; 80306; 80307; 81003; 82803; 83605; 84439; 84443; 84484; 85014; 85018; 85025; 87040; 87086; 88304; 93005; 93970; 94640; 94667; 97116; 97163; 97530; G0378; J0461; J0690; J1170; J1956; J2175; J2405; J2710; J3010; J3360; J7030; J7040; J7999; Q9967